=== PATIENT | female | born 1985 | race American Indian/Alaskan Native ===

== ENCOUNTER 2017-08-08 07:04 | Emergency (ER) | payer OTHER ==
[2017-08-08 09:44] LABS: HCG Qualitative,Urine Positive (Negative)
[2017-08-08 09:50] LABS: Bilirubin,Urine NEG (Negative); Blood,Urine NEG (Negative); Color,Urine Yellow (Yellow); Mucus,Urine FEW /HPF; Nitrite,Urine NEG (Negative); Protein,Urine <15 mg/dL mg/dL (Negative)
[2017-08-08] MEDS ORDERED: TYLENOL PO ONE (10:10)
--- NOTE | 2017-08-08 10:49 | Emergency Department Report ---
ED Back Pain/Injury HPI - General Chief Complaint: Back Pain/Injury Stated Complaint: BACK PAIN Time Seen by Provider: 08/08/17 10:05 Source: patient Limitations: No Limitations - History of Present Illness Initial Comments: This is a 31-year-old female nontoxic, well nourished in appearance, no acute signs of distress presents to the ED with c/o of acute on chronic back pain that radiates towards right lower extremity x1 month. Patient she usually takes Percocet and naproxen for pain reliever but sthe patient is out of her medication. Patient also stated to have slight abdominal cramping intermittently 1 month. Patient denies any vaginal bleeding, chest pain, shortness of breath, fever, chills, nausea, vomiting, headache or stiff neck. Patient denies any cough. Patient denies any dysuria, polyuria, or hematuira. Patient states past medical history of chronic back pain. Denies any allergies. MD Complaint: back pain -: month(s) (1) Similar Symptoms Previously: Yes Radiation: right leg Severity: mild Severity scale (0 -10): 8 Quality: aching Consistency: intermittent Improves With: immobilization, supine, sitting upright Worsens With: movement, walking Associated Symptoms: denies other symptoms. denies: confusion, weakness, chest pain, numbness, difficulty walking, cough, difficulty urinating, diaphoresis, incontinence, fever/chills, constipation, headaches, abdominal pain, loss of appetite, malaise, nausea/vomiting, rash, seizure, shortness of breath, syncope - Related Data Previous Rx's Medication Instructions Recorded Last Taken Type Acetaminophen [Acetaminophen 8 650 mg PO Q8H PRN #30 tablet.er 08/08/17 Unknown Rx Hour] Nitrofurantoin Monohyd/M-Cryst 100 mg PO Q12H #14 capsule 08/08/17 Unknown Rx [Macrobid 100 mg Capsule] Allergies Allergy/AdvReac Type Severity Reaction Status Date / Time No Known Allergies Allergy Unverified 08/08/17 07:33 ED Review of Systems ROS: Stated complaint: BACK PAIN Other details as noted in HPI Constitutional: denies: chills, fever Eyes: denies: eye pain, eye discharge, vision change ENT: denies: ear pain, throat pain Respiratory: denies: cough, shortness of breath, wheezing Cardiovascular: denies: chest pain, palpitations Endocrine: no symptoms reported Gastrointestinal: denies: abdominal pain, nausea, diarrhea Genitourinary: denies: urgency, dysuria, discharge Musculoskeletal: back pain. denies: joint swelling, arthralgia Skin: denies: rash, lesions Neurological: denies: headache, weakness, paresthesias Psychiatric: denies: anxiety, depression Hematological/Lymphatic: denies: easy bleeding, easy bruising ED Past Medical Hx - Past Medical History Previous Medical History?: Yes Additional medical history: back paiin - Surgical History Past Surgical History?: Yes Additional Surgical History: Abd hernia repair - Social History Smoking Status: Current Every Day Smoker Substance Use Type: Alcohol, Non Opiate Pain, Prescribed - Medications Home Medications: Home Medications Medication Instructions Recorded Confirmed Last Taken Type Acetaminophen [Acetaminophen 8 650 mg PO Q8H PRN #30 tablet.er 08/08/17 Unknown Rx Hour] Nitrofurantoin Monohyd/M-Cryst 100 mg PO Q12H #14 capsule 08/08/17 Unknown Rx [Macrobid 100 mg Capsule] ED Physical Exam - General Limitations: No Limitations General appearance: alert, in no apparent distress - Head Head exam: Present: atraumatic, normocephalic - Eye Eye exam: Present: normal appearance, PERRL, EOMI Pupils: Present: normal accommodation - ENT ENT exam: Present: normal exam, normal orophraynx, mucous membranes moist, TM's normal bilaterally, normal external ear exam - Neck Neck exam: Present: normal inspection, full ROM. Absent: tenderness, meningismus, lymphadenopathy, thyromegaly - Respiratory Respiratory exam: Present: normal lung sounds bilaterally. Absent: respiratory distress, wheezes, rales, rhonchi, stridor, chest wall tenderness, accessory muscle use, decreased breath sounds, prolonged expiratory - Cardiovascular Cardiovascular Exam: Present: regular rate, normal rhythm, normal heart sounds. Absent: bradycardia, tachycardia, irregular rhythm, systolic murmur, diastolic murmur, rubs, gallop - GI/Abdominal GI/Abdominal exam: Present: soft, normal bowel sounds. Absent: distended, tenderness, guarding, rebound, rigid, diminished bowel sounds - Rectal Rectal exam: Present: deferred - Extremities Exam Extremities exam: Present: normal inspection, full ROM, normal capillary refill. Absent: tenderness, pedal edema, joint swelling, calf tenderness - Back Exam Back exam: Present: normal inspection, full ROM, paraspinal tenderness (lumbar region bilateral). Absent: tenderness, CVA tenderness (R), CVA tenderness (L), muscle spasm, vertebral tenderness, rash noted - Expanded Back Exam Expanded Back exam: Absent: saddle anesthesia Back exam: Negative Straight Leg Raising: Left, Right - Neurological Exam Neurological exam: Present: alert, oriented X3, CN II-XII intact, normal gait, reflexes normal - Psychiatric Psychiatric exam: Present: normal affect, normal mood - Skin Skin exam: Present: warm, dry, intact, normal color. Absent: rash ED Course Vital Signs 08/08/17 08/08/17 07:33 11:44 Temperature 98.2 F 98.8 F Pulse Rate 87 85 Respiratory 20 18 Rate Blood Pressure 120/70 127/85 O2 Sat by Pulse 100 100 Oximetry - Reevaluation(s) Reevaluation #1: 08/08/17 10:44 Patient is speaking in full sentences with no signs of distress noted. ED Medical Decision Making - Medical Decision Making This is a 31-year-old female that presents with chronic low back pain. Patient is stable and was examined by me. Labs within normal limits. UA indicates positive for UTI. Patient is upon UA. Negative CVA tenderness. Patient stated she was not aware of this. Quantitative serum has been obtained. Ultrasound OB and transvaginal obtained and dictated by radiologist within normal limits. Patient was notified of ultrasound report with no questionable by the patient. Patient was instructed to return in 2 days for a repeat Derek. Patient received Tylenol in the ED which patent symptoms is improving subsided. She is discharged with Tylenol. Patient was instructed to Follow-up with a primary care doctor/[facility]PA[facility] in 3-5 days or if symptoms worsen and continue return to emergency room as soon as possible. At time of discharge, the patient does not seem toxic or ill in appearance. No acute signs of distress noted. Patient agrees to discharge treatment plan of care. No further questions noted by the patient. Critical care attestation.: If time is entered above; I have spent that time in minutes in the direct care of this critically ill patient, excluding procedure time. ED Disposition Clinical Impression: Qualifiers: Weeks of gestation: unspecified Qualified Code(s): Z34.90 - Encounter for supervision of normal , unspecified, unspecified trimester Chronic low back pain Qualifiers: Back pain laterality: right Sciatica presence: with sciatica Sciatica laterality: sciatica of right side Qualified Code(s): M54.41 - Lumbago with sciatica, right side UTI (urinary tract infection) Qualifiers: Urinary tract infection type: site unspecified Hematuria presence: without hematuria Qualified Code(s): N39.0 - Urinary tract infection, site not specified Disposition: DC-01 TO HOME OR SELFCARE Is pt being admited?: No Does the pt Need Aspirin: No Condition: Stable Instructions: Acetaminophen (By mouth), (ED), Chronic Back Pain (ED) Additional Instructions: Follow-up with a primary care doctor/[facility] TRA[employer] REPAIRER in 3-5 days or if symptoms worsen and continue return to emergency room as soon as possible. Return to the emergency room in 2 days for repeat quantitative test. Prescriptions: Acetaminophen [Acetaminophen 8 Hour] 650 mg PO Q8H PRN #30 tablet.er PRN Reason: Pain Nitrofurantoin Monohyd/M-Cryst [Macrobid 100 mg Capsule] 100 mg PO Q12H #14 capsule Referrals: PRIMARY CAREMD [Primary Care Provider] - 3-5 Days MARIANNA ZAMBRANO MD [Staff Physician] - 3-5 Days CRISTY VACA MD [Staff Physician] - 3-5 Days [facility] [Provider Group] - 3-5 Days [facility] [Outside] - 3-5 Days [facility] [Outside] - 3-5 Days Forms: Work/School Release Form(ED)
[2017-08-08 11:49] VITALS: BP 127/85
--- NOTE | 2017-08-08 12:12 | Ultrasound Report ---
ULTRASOUND OB ULTRASOUND OB TRANSVAGINAL HISTORY: Abdominal pain. COMPARISON: None. TECHNIQUE: Transabdominal and transvaginal ultrasound with color doppler interrogation. FINDINGS: The uterus and ovaries are within normal limits. The endometrium measures 10 mm. No intrauterine is visualized. No pelvic fluid or mass is identified. Normal color doppler interrogation. IMPRESSION: Unremarkable transabdominal and transvaginal pelvic ultrasounds.
== END 2017-08-08 12:24 | disposition home or self-care (01) ==
LOC: ED 07:04
DX: O23.31 Infections of other parts of urinary tract in pregnancy, first trimester (principal); Z3A.00 Weeks of gestation of pregnancy not specified; O26.891 Other specified pregnancy related conditions, first trimester; M54.41 Lumbago with sciatica, right side; F17.200 Nicotine dependence, unspecified, uncomplicated
CPT/HCPCS: 36415; 76801; 76817; 81001; 81025; 84702; 86850; 86900; 86901

== ENCOUNTER 2017-09-12 11:29 | Emergency (ER) | payer OTHER ==
[2017-09-12 12:44] LABS: Bilirubin,Urine NEG (Negative); Blood,Urine MOD (Negative); Color,Urine Yellow (Yellow); Mucus,Urine 2+ /HPF; Protein,Urine <15 mg/dL mg/dL (Negative)
[2017-09-12 12:49] LABS: Basophils # (Auto) 0.1 K/mm3 (0.0-0.1); Basophils % (Auto) 0.6 % (0.0-1.8); Eosinophils # (Auto) 0.1 K/mm3 (0.0-0.4); Eosinophils % (Auto) 0.7 % (0.0-4.3); Hematocrit 26.5 % (30.3-42.9); Hemoglobin 9.6 gm/dl (10.1-14.3); Lymphocytes # (Auto) 2.3 K/mm3 (1.2-5.4); Lymphocytes % (Auto) 22.2 % (13.4-35.0); Mean Corpuscular HGB Conc 36 % (30-34); Mean Corpuscular Hemoglobin 32 pg (28-32); Mean Corpuscular Volume 89 fl (79-97); Monocytes # (Auto) 0.6 K/mm3 (0.0-0.8); Monocytes % (Auto) 5.8 % (0.0-7.3); Platelet Count 234 K/mm3 (140-440); Red Blood Count 2.99 M/mm3 (3.65-5.03); Red Cell Distribution Width 13.2 % (13.2-15.2)
[2017-09-12 15:19] VITALS: BP 115/76
--- NOTE | 2017-09-12 16:18 | Emergency Department Report ---
HPI - General Chief Complaint: Vaginal Bleeding Time Seen by Provider: 09/12/17 15:47 - HPI HPI: Room 25 The patient is a 31-year-old female presenting with a chief complaint of vaginal bleeding. The patient is and states 2 days ago began passing clots vaginally. Patient denies passing tissue. Patient denies any history of fever Location: Vagina Duration: 2 days Quality: Blood clots Severity: Moderate Modifying factors: [see above] Context: [see above] Mode of transportation: [not driving] ED Past Medical Hx - Past Medical History Hx Hypertension: Yes (borderline. No meds) Additional medical history: back paIN, BORDERLINE HTN - Surgical History Additional Surgical History: Abd hernia repair - Family History Family history: no significant - Social History Smoking Status: Current Every Day Smoker Substance Use Type: None (denies illicit drug use) - Medications Home Medications: Home Medications Medication Instructions Recorded Confirmed Last Taken Type Acetaminophen [Acetaminophen 8 650 mg PO Q8H PRN #30 tablet.er 08/08/17 Unknown Rx Hour] Nitrofurantoin Monohyd/M-Cryst 100 mg PO Q12H #14 capsule 08/08/17 Unknown Rx [Macrobid 100 mg Capsule] HYDROcodone/APAP 5-325 [[place] 1 - 2 each PO Q6HR PRN #10 tablet 09/12/17 Unknown Rx 5/325] Ibuprofen [Motrin 800 MG tab] 800 mg PO Q8HR PRN #20 tablet 09/12/17 Unknown Rx ED Review of Systems ROS: Stated complaint: VAGINAL BLEEDING Other details as noted in HPI Constitutional: denies: fever Genitourinary: abnormal menses Physical Exam - Physical Exam Vital Signs: Vital Signs 09/12/17 09/12/17 12:02 15:17 Temperature 98.6 F 98.4 F Pulse Rate 86 81 Respiratory 17 18 Rate Blood Pressure 120/70 Blood Pressure 115/76 [Right] O2 Sat by Pulse 100 100 Oximetry Physical Exam: GENERAL: The patient is well-developed well-nourished female lying on stretcher not appearing to be in acute distress. [] HEENT: Normocephalic. Atraumatic. Extraocular motions are intact. Patient has moist mucous membranes. NECK: Supple. Trachea midline CHEST/LUNGS: Clear to auscultation. There is no respiratory distress noted. HEART/CARDIOVASCULAR: Regular. There is no tachycardia. There is no gallop rub or murmur. ABDOMEN: Abdomen is soft, nontender. Patient has normal bowel sounds. There is no abdominal distention. SKIN: There is no rash. There is no edema. There is no diaphoresis. NEURO: The patient is awake, alert, and oriented. The patient is cooperative. The patient has normal speech MUSCULOSKELETAL: There is no evidence of acute injury. PELVIC: Small amount of dark blood in the vault ED Course Vital Signs 09/12/17 09/12/17 12:02 15:17 Temperature 98.6 F 98.4 F Pulse Rate 86 81 Respiratory 17 18 Rate Blood Pressure 120/70 Blood Pressure 115/76 [Right] O2 Sat by Pulse 100 100 Oximetry - Consultations Consultation #1: 09/12/17 18:58 CRYSTAL CAL[employer]RATOR paged 09/12/17 19:[address] Clemons. Recommends administering one dose of IM Methergine and have patient keep appointment scheduled for 09/18/2017 ED Medical Decision Making - Lab Data Result diagrams: 09/12/17 12:31 Laboratory Tests 09/12/17 09/12/17 09/12/17 12:20 12:31 12:31 WBC 10.4 RBC 2.99 L Hgb 9.6 L Hct 26.5 L MCV 89 MCH 32 MCHC 36 H RDW 13.2 Plt Count 234 Lymph % (Auto) 22.2 Chambers % (Auto) 5.8 Eos % (Auto) 0.7 Baso % (Auto) 0.6 Lymph # 2.3 Chambers # 0.6 Eos # 0.1 Baso # 0.1 Seg Neutrophils % 70.7 H Seg Neutrophils # 7.4 HCG, Qual HCG, Quant [id number] H Urine Color Yellow Urine Turbidity Clear Urine pH 6.0 Ur Specific [place] 1.023 Urine Protein <15 mg/dl Urine Glucose (UA) Neg Urine Ketones Tr Urine Blood Mod Urine Nitrite Neg Urine Bilirubin Neg Urine Urobilinogen 2.0 Ur Leukocyte Esterase Neg Urine WBC (Auto) 2.0 Urine RBC (Auto) 1.0 U Epithel Cells (Auto) 2.0 Urine Mucus 2+ Blood Type Antibody Screen 09/12/17 09/12/17 12:31 12:31 WBC RBC Hgb Hct MCV MCH MCHC RDW Plt Count Lymph % (Auto) Chambers % (Auto) Eos % (Auto) Baso % (Auto) Lymph # Chambers # Eos # Baso # Seg Neutrophils % Seg Neutrophils # HCG, Qual Positive HCG, Quant Urine Color Urine Turbidity Urine pH Ur Specific [place] Urine Protein Urine Glucose (UA) Urine Ketones Urine Blood Urine Nitrite Urine Bilirubin Urine Urobilinogen Ur Leukocyte Esterase Urine WBC (Auto) Urine RBC (Auto) U Epithel Cells (Auto) Urine Mucus Blood Type AB POSITIVE Antibody Screen Negative - Radiology Data Radiology results: report reviewed (pelvic ultrasound), image reviewed (pelvic ultrasound) [facility] [address] [place] [address] Ultrasound Report Signed Patient: TORIE CORDOVA MR#: [id number] : 1985 Acct:[id number] Age/Sex: 31 / F ADM Date: 09/12/17 Loc: ED Attending Dr: Ordering Physician: LULA ROGERS MD Date of Service: 09/12/17 Procedure(s): US OB transvaginal Accession Number(s): [id number] cc: LULA ROGERS MD FINAL REPORT EXAM: US OB TRANSVAGINAL HISTORY: with vaginal bleeding . LMP 07/13/2017 with estimated age 8 weeks 5 days and EDC 04/19/2018. Quantitative beta HCG level 24,667 corresponding to 7-12 weeks gestation TECHNIQUE: Ultrasound of the pelvis using transabdominal and transvaginal imaging PRIORS: None. FINDINGS: Uterus: Uterus is enlarged in size and normal and homogeneous in echogenicity without focal fibroid formation. The uterus measures 11.5 x 5.5 x 6.5 cm in size. No definite intrauterine is identified. Endometrial stripe: Endometrial stripe is abnormally thickened and heterogeneous in echogenicity measuring 31.6 mm. No significant blood flow is noted within the endometrial thickness. Ovaries: Both ovaries appear normal in size and echogenicity with normal blood flow bilaterally. The right ovary measures 4.1 x 2.0 x 2.1 cm and the left ovary measures 3.6 x 1.8 x 3.4 cm in size. In the left ovary, there is a complex avascular hemorrhagic debris-filled cyst measuring 2.1 cm. Other: There is no evidence for solid adnexal mass is seen. There is no free fluid in the cul-de-sac. IMPRESSION: 1. No evidence for intrauterine gestation identified. No definite evidence for extra uterine . 2. the endometrium is abnormally thickened and heterogeneous in appearance. 3. Correlation with serial beta quantitative HCG levels is recommended. Transcribed By: [facility] Dictated By: GARDENIA SEN MD Electronically Authenticated By: GARDENIA SEN MD Signed Date/Time: 09/12/171815 DD/ 15 TD/TT: 09/12/171815 - Differential Diagnosis threatened , spontaneous , missed Critical care attestation.: If time is entered above; I have spent that time in minutes in the direct care of this critically ill patient, excluding procedure time. ED Disposition Clinical Impression: Spontaneous Disposition: - TO HOME OR SELFCARE Is pt being admited?: No Does the pt Need Aspirin: No Condition: Stable Instructions: Spontaneous Miscarriage (ED) Additional Instructions: Return to the emergency department immediately should you develop worsening symptoms, fever, inability to tolerate food or liquid or any other concerns. Prescriptions: HYDROcodone/APAP 5-325 [[place] 5/325] 1 - 2 each PO Q6HR PRN #10 tablet PRN Reason: Pain Ibuprofen [Motrin 800 MG tab] 800 mg PO Q8HR PRN #20 tablet PRN Reason: Pain Referrals: PRIMARY CARE, [Primary Care Provider] - 3-5 Days TK FELIPE MD [Staff Physician] - 09/18/17 () Time of Disposition: 19:21
--- NOTE | 2017-09-12 18:19 | Ultrasound Report ---
FINAL REPORT EXAM: US OB < = 14 WEEKS FETUS HISTORY: with vaginal bleeding . LMP 07/13/2017 with estimated age 8 weeks 5 days and EDC 04/19/2018. Quantitative beta HCG level 24,667 corresponding to 7-12 weeks gestation TECHNIQUE: Ultrasound of the pelvis using transabdominal and transvaginal imaging PRIORS: None. FINDINGS: Uterus: Uterus is enlarged in size and normal and homogeneous in echogenicity without focal fibroid formation. The uterus measures 11.5 x 5.5 x 6.5 cm in size. No definite intrauterine is identified. Endometrial stripe: Endometrial stripe is abnormally thickened and heterogeneous in echogenicity measuring 31.6 mm. No significant blood flow is noted within the endometrial thickness. Ovaries: Both ovaries appear normal in size and echogenicity with normal blood flow bilaterally. The right ovary measures 4.1 x 2.0 x 2.1 cm and the left ovary measures 3.6 x 1.8 x 3.4 cm in size. In the left ovary, there is a complex avascular hemorrhagic debris-filled cyst measuring 2.1 cm. Other: There is no evidence for solid adnexal mass is seen. There is no free fluid in the cul-de-sac. IMPRESSION: 1. No evidence for intrauterine gestation identified. No definite evidence for extra uterine . 2. the endometrium is abnormally thickened and heterogeneous in appearance. 3. Correlation with serial beta quantitative HCG levels is recommended.
[2017-09-12] MEDS ORDERED: METHERGINE IM ONE (19:19)
[2017-09-12] MEDS ORDERED: NORCO 5/325 ONE (19:37)
[2017-09-12] MEDS ORDERED: NORCO 5/325 PO ONE (19:42)
== END 2017-09-12 20:16 | disposition home or self-care (01) ==
LOC: ED 11:29
DX: O03.9 Complete or unspecified spontaneous abortion without complication (principal); O99.331 Smoking (tobacco) complicating pregnancy, first trimester; F17.200 Nicotine dependence, unspecified, uncomplicated; Z3A.08 8 weeks gestation of pregnancy
CPT/HCPCS: 36415; 76801; 76817; 81001; 84702; 84703; 85025; 86850; 86900; 86901; 96372; 99284; J2210

== ENCOUNTER 2018-02-07 13:33 | Emergency (ER) | payer OTHER ==
[2018-02-07 13:42] VITALS: BP 120/55
--- NOTE | 2018-02-07 16:50 | Ultrasound Report ---
FINAL REPORT EXAM: US OB TRANSVAGINAL HISTORY: fall (staus of baby) TECHNIQUE: Ultrasound pelvis transvaginal obstetrical PRIORS: None. FINDINGS: There is gestational sac present within the uterus. pole identified with crown-rump length 2.0 centimeters corresponding to estimated gestational age 8 weeks 4 days with estimated date of delivery September 15, 2018. Yolk sac is identified There is cardiac activity with heart rate 166 beats per minute. No free fluid seen within the cul-de-sac The right ovary is 7.8 x 3.5 x 5.6 centimeters. There are 2 cysts within the right ovary measuring 3.8 and 3.4 centimeters Left ovary 3.4 x 1.8 x 3.6 centimeters. No mass or cyst identified. IMPRESSION: Single live intrauterine gestation estimated at 8 weeks 4 days Right ovarian cysts noted
--- NOTE | 2018-02-07 16:52 | Ultrasound Report ---
FINAL REPORT EXAM: US OB < = 14 WEEKS FETUS HISTORY: fall TECHNIQUE: Ultrasound pelvis obstetrical transabdominal PRIORS: None. FINDINGS: There is gestational sac present within the uterus. pole identified with crown-rump length 2.0 centimeters corresponding to estimated gestational age 8 weeks 4 days with estimated date of delivery September 15, 2018. Yolk sac is identified There is cardiac activity with heart rate 166 beats per minute. No free fluid seen within the cul-de-sac The right ovary is 7.8 x 3.5 x 5.6 centimeters. There are 2 cysts within the right ovary measuring 3.8 and 3.4 centimeters Left ovary 3.4 x 1.8 x 3.6 centimeters. No mass or cyst identified. IMPRESSION: Single live intrauterine gestation estimated at 8 weeks 4 days Right ovarian cysts noted
[2018-02-07] MEDS ORDERED: TYLENOL PO ONE (20:30)
--- NOTE | 2018-02-07 20:34 | Emergency Department Report ---
ED Fall HPI - General Chief Complaint: Fall Stated Complaint: FALLEN/BACK PAIN Time Seen by Provider: 02/07/18 20:30 Source: patient Mode of arrival: Ambulatory - History of Present Illness Initial Comments: 32-year-old Finnish female that is 8 weeks presents to the emergency room with complaint of back pain status post falling down the steps yesterday night approximately 1900. Patient reports that she slipped down the steps and hit her lower back. Patient denies any vaginal bleeding or vaginal discharge no abdominal pain. Patient is 4 para 2 with a history of miscarriage. Patient is just concerned that the baby is okay. Complaint: fall -: days(s) (1) - Related Data Previous Rx's Medication Instructions Recorded Last Taken Type Acetaminophen [Acetaminophen 8 650 mg PO Q8H PRN #30 tablet.er 08/08/17 Unknown Rx Hour] Nitrofurantoin Monohyd/M-Cryst 100 mg PO Q12H #14 capsule 08/08/17 Unknown Rx [Macrobid 100 mg Capsule] HYDROcodone/APAP 5-325 [[place] 1 - 2 each PO Q6HR PRN #10 tablet 09/12/17 Unknown Rx 5/325] Ibuprofen [Motrin 800 MG tab] 800 mg PO Q8HR PRN #20 tablet 09/12/17 Unknown Rx Allergies Allergy/AdvReac Type Severity Reaction Status Date / Time No Known Allergies Allergy Verified 02/07/18 13:37 ED Review of Systems ROS: Stated complaint: FALLEN/BACK PAIN Other details as noted in HPI Comment: All other systems reviewed and negative Musculoskeletal: back pain (stiffness and soreness) ED Past Medical Hx - Past Medical History Previous Medical History?: Yes Hx Hypertension: Yes (borderline. No meds) Additional medical history: back paIN, BORDERLINE HTN - Surgical History Past Surgical History?: Yes Additional Surgical History: Abd hernia repair - Social History Smoking Status: Never Smoker Substance Use Type: None - Medications Home Medications: Home Medications Medication Instructions Recorded Confirmed Last Taken Type Acetaminophen [Acetaminophen 8 650 mg PO Q8H PRN #30 tablet.er 08/08/17 Unknown Rx Hour] Nitrofurantoin Monohyd/M-Cryst 100 mg PO Q12H #14 capsule 08/08/17 Unknown Rx [Macrobid 100 mg Capsule] HYDROcodone/APAP 5-325 [[place] 1 - 2 each PO Q6HR PRN #10 tablet 09/12/17 Unknown Rx 5/325] Ibuprofen [Motrin 800 MG tab] 800 mg PO Q8HR PRN #20 tablet 09/12/17 Unknown Rx ED Physical Exam - General Limitations: No Limitations General appearance: alert - Head Head exam: Present: atraumatic - Eye Eye exam: Present: normal appearance - ENT ENT exam: Present: mucous membranes moist - Neck Neck exam: Present: normal inspection - Cardiovascular Cardiovascular Exam: Present: regular rate, normal rhythm. Absent: systolic murmur, diastolic murmur, rubs, gallop - GI/Abdominal GI/Abdominal exam: Present: soft, normal bowel sounds. Absent: distended, tenderness - Extremities Exam Extremities exam: Present: normal inspection - Back Exam Back exam: Present: full ROM. Absent: tenderness - Neurological Exam Neurological exam: Present: alert, oriented X3 - Psychiatric Psychiatric exam: Present: normal affect, normal mood - Skin Skin exam: Present: warm, dry, intact, normal color. Absent: rash ED Course Vital Signs 02/07/18 13:37 Temperature 98.4 F Pulse Rate 54 L Respiratory 16 Rate Blood Pressure 120/55 O2 Sat by Pulse 96 Oximetry ED Medical Decision Making - Radiology Data Radiology results: report reviewed, image reviewed FINAL REPORT EXAM: US OB TRANSVAGINAL HISTORY: fall (staus of baby) TECHNIQUE: Ultrasound pelvis transvaginal obstetrical PRIORS: None. FINDINGS: There is gestational sac present within the uterus. pole identified with crown-rump length 2.0 centimeters corresponding to estimated gestational age 8 weeks 4 days with estimated date of delivery September 15, 2018. Yolk sac is identified There is cardiac activity with heart rate 166 beats per minute. No free fluid seen within the cul-de-sac The right ovary is 7.8 x 3.5 x 5.6 centimeters. There are 2 cysts within the right ovary measuring 3.8 and 3.4 centimeters Left ovary 3.4 x 1.8 x 3.6 centimeters. No mass or cyst identified. IMPRESSION: Single live intrauterine gestation estimated at 8 weeks 4 days Right ovarian cysts noted Transcribed By: DOMINIC Dictated By: GUS DUBON MD Electronically Authenticated By: GUS DUBON MD Signed Date/Time: 02/07/181650 DD/ 50 TD/TT: 08/22/18 1651 - Medical Decision Making Patient has been evaluated by this provider fast track. Acetaminophen 650 mg given for back pain. Transvaginal and pelvic ultrasound performed shows that there is IUP is approximately 8 weeks and 4 days. 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 Patient verbalizes understanding. Critical care attestation.: If time is entered above; I have spent that time in minutes in the direct care of this critically ill patient, excluding procedure time. ED Disposition Clinical Impression: Fall (on) (from) other stairs and steps, initial encounter Lower back pain Qualifiers: Chronicity: acute Back pain laterality: unspecified Sciatica presence: without sciatica Qualified Code(s): M54.5 - Low back pain Qualifiers: Weeks of gestation: 8 weeks Qualified Code(s): Z3A.08 - 8 weeks gestation of Disposition: DC-01 TO HOME OR SELFCARE Is pt being admited?: No Does the pt Need Aspirin: No Condition: Stable Instructions: Fall Prevention (ED), Back Pain (ED) Additional Instructions: Please take Tylenol/acetaminophen for pain management. Please contact your OB provider to inform them that you're in the emergency room. Referrals: PRIMARY CARE, [Primary Care Provider] - 3-5 Days [facility] [Provider Group] - 3-5 Days Forms: Work/School Release Form(ED)
== END 2018-02-07 20:47 | disposition home or self-care (01) ==
LOC: ED 13:33
DX: O26.891 Other specified pregnancy related conditions, first trimester (principal); M54.5 Low back pain; Z3A.08 8 weeks gestation of pregnancy; W10.9XXA Fall (on) (from) unspecified stairs and steps, initial encounter; Y93.89 Activity, other specified; Y92.89 Other specified places as the place of occurrence of the external cause; Y99.8 Other external cause status
CPT/HCPCS: 36415; 76801; 76817; 84702

== ENCOUNTER 2018-02-27 05:55 | Emergency (ER) | payer OTHER ==
[2018-02-27 06:08] VITALS: BP 116/72
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
[2018-02-27] MEDS ORDERED: TYLENOL PO ONE ×2 (07:43)
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
== END 2018-02-27 10:14 | disposition home or self-care (01) ==
LOC: ED 05:55
DX: O9A.211 Injury, poisoning and certain other consequences of external causes complicating pregnancy, first trimester (principal); M54.5 Low back pain; M79.1 Myalgia; R10.9 Unspecified abdominal pain; I10 Essential (primary) hypertension; F17.200 Nicotine dependence, unspecified, uncomplicated; Z3A.11 11 weeks gestation of pregnancy
CPT/HCPCS: 76801

== ENCOUNTER 2018-07-08 05:14 | Outpatient (CLI) | payer OTHER ==
[2018-07-08] MEDS ORDERED: LACTATED RINGERS 1,000 ML IV ONE (05:48)
[2018-07-08 05:53] VITALS: BP 114/68
[2018-07-08 06:08] LABS: Bacteria,Urine 2+ /HPF (Negative); Bilirubin,Urine NEG (Negative); Blood,Urine NEG (Negative); Color,Urine Yellow (Yellow); Mucus,Urine FEW /HPF; Protein,Urine <15 mg/dL mg/dL (Negative); Urobilinogen,Urine < 2.0 mg/dL (<2.0)
[2018-07-08] MEDS ORDERED: TYLENOL PO NR (06:42)
[2018-07-08] MEDS ORDERED: BRETHINE SUB-Q SCH (07:00)
== END 2018-07-08 07:30 | disposition home or self-care (01) ==
LOC: TRG 05:14
PROVIDERS: ATTEND Obstetrics & Gynecology
DX: O47.03 False labor before 37 completed weeks of gestation, third trimester (principal); O10.013 Pre-existing essential hypertension complicating pregnancy, third trimester; Z3A.30 30 weeks gestation of pregnancy
CPT/HCPCS: 59025; 81001; 96360; J3105; J7120

== ENCOUNTER 2018-08-12 10:36 | Outpatient (CLI) | payer OTHER ==
[2018-08-12 10:51] VITALS: BP 121/74
[2018-08-12 13:01] LABS: Bilirubin,Urine NEG (Negative); Blood,Urine NEG (Negative); Color,Urine Yellow (Yellow); Mucus,Urine FEW /HPF; Protein,Urine <15 mg/dL mg/dL (Negative); Urobilinogen,Urine < 2.0 mg/dL (<2.0)
== END 2018-08-12 12:57 | disposition home or self-care (01) ==
LOC: TRG 10:36
PROVIDERS: ATTEND Obstetrics & Gynecology
DX: O47.03 False labor before 37 completed weeks of gestation, third trimester (principal); Z3A.35 35 weeks gestation of pregnancy; W19.XXXA Unspecified fall, initial encounter; Y93.89 Activity, other specified; Y92.89 Other specified places as the place of occurrence of the external cause; Y99.8 Other external cause status
CPT/HCPCS: 59025; 81001

== ENCOUNTER 2018-08-15 18:35 | Outpatient (CLI) | payer OTHER ==
[2018-08-15] MEDS ORDERED: LACTATED RINGERS 500 ML IV ONE (18:57)
[2018-08-15 19:26] LABS: Hematocrit 27.3 % (30.3-42.9); Mean Corpuscular HGB Conc 37 % (30-34); Mean Corpuscular Volume 87 fl (79-97); Platelet Count 327 K/mm3 (140-440); Red Blood Count 3.13 M/mm3 (3.65-5.03); Red Cell Distribution Width 16.1 % (13.2-15.2)
[2018-08-15 19:27] LABS: Bilirubin,Urine NEG (Negative); Blood,Urine NEG (Negative); Color,Urine Yellow (Yellow); Mucus,Urine FEW /HPF; Protein,Urine <15 mg/dL mg/dL (Negative); Urobilinogen,Urine < 2.0 mg/dL (<2.0)
[2018-08-15 19:57] VITALS: BP 126/71
[2018-08-15 20:00] LABS: Uric Acid 3.1 mg/dL (3.5-7.6)
[2018-08-15 20:03] LABS: Alanine Aminotransferase < 5 units/L (7-56)
[2018-08-15] MEDS ORDERED: TYLENOL PO ONE (20:05)
== END 2018-08-15 20:30 | disposition home or self-care (01) ==
LOC: TRG 18:35
PROVIDERS: ATTEND Obstetrics & Gynecology
DX: O47.03 False labor before 37 completed weeks of gestation, third trimester (principal); Z3A.35 35 weeks gestation of pregnancy
CPT/HCPCS: 36415; 81001; 82565; 83615; 84450; 84460; 84550; 85027; J7120

== ENCOUNTER 2018-09-11 20:46 | Inpatient (IN) | payer OTHER ==
[2018-09-11] MEDS ORDERED: CERVIDIL VG ONE (21:41)
[2018-09-11] MEDS ORDERED: MINERAL OIL PO PRN (21:41)
[2018-09-11] MEDS ORDERED: AMBIEN PO PRN (21:43)
[2018-09-11] MEDS ORDERED: PITOCin/NS 20 UNIT/1000ML DRIP 20 UNITS/1,000 ML BAG IV SCH (22:00)
[2018-09-11] MEDS ORDERED: LACTATED RINGERS 1,000 ML IV SCH (22:00)
[2018-09-11 22:18] LABS: Hemoglobin 9.6 gm/dl (10.1-14.3); Mean Corpuscular HGB Conc 36 % (30-34); Mean Corpuscular Volume 85 fl (79-97); Platelet Count 320 K/mm3 (140-440); Red Blood Count 3.19 M/mm3 (3.65-5.03); Red Cell Distribution Width 16.1 % (13.2-15.2)
[2018-09-12] MEDS ORDERED: BRETHINE SUB-Q PRN (01:41)
[2018-09-12] MEDS ORDERED: BRETHINE IVP PRN (01:41)
[2018-09-12] MEDS ORDERED: XYLOCAINE 2% INFILTRATI ONE (01:41)
[2018-09-12] MEDS ORDERED: LACTATED RINGERS 1,000 ML IV SCH (02:00)
[2018-09-12] MEDS ORDERED: PITOCin/NS 20 UNIT/1000ML DRIP 20 UNITS/1,000 ML BAG IV SCH (02:00)
--- NOTE | 2018-09-12 02:14 | History and Physical Report ---
History of Present Illness Date of examination: 09/12/18 (pt presents for IOL as per [facility] recommendation) Date of admission: 09/11/18 20:46 History of present illness: EDC Confirmation: 09/16/2018 Gestational Age: 6 1/7 weeks Past History : 4 Term Births: 2 Living Children: 2 Para: 2 Spont. Ab: 1 # 1 Delivery date: 2006 Weeks Gestation: 38 labor: no Delivery type: Anesthesia type: none [facility] Sex: Male weight: 5-9 # 2 Delivery date: 2009 Weeks Gestation: 38 Delivery type: Anesthesia type: none [facility] Infant Sex: Female weight: 5-13 # 3 Delivery date: 2018 Delivery type: SAB Past Medical History Social Hx: single no E/T/D-previously [facility] use prior to know [place] Active Medications (reviewed today): PLUS 27-1 MG ORAL TABLET ( VIT-FE FUMARATE-FA) 1 po CELEXA 20 MG ORAL TABLET (CITALOPRAM HYDROBROMIDE) 1 po qd DIFLUCAN 150 MG ORAL TABLET (FLUCONAZOLE) 1 tab po times one IBUPROFEN 800 MG ORAL TABLET (IBUPROFEN) 1 po q6 hr prn pain ZOLOFT 50 MG ORAL TABLET (SERTRALINE HCL) 1 po in the morning FERROUS SULFATE 325 (65 FE) MG ORAL TABLET (FERROUS SULFATE) 1 po qd ADVIL 200 MG ORAL TABLET (IBUPROFEN) Current Allergies (reviewed today): No known allergies Past History - Obstetrical History Expected Date of Delivery: 09/16/18 Actual Gestation: 39 Week(s) 3 Day(s) : 4 Para: 2 Hx # Term Pregnancies: 2 Number of Pregnancies: 0 Spontaneous Abortions: 1 Number of Living Children: 2 Medications and Allergies Allergies Allergy/AdvReac Type Severity Reaction Status Date / Time No Known Allergies Allergy Verified 02/07/18 13:37 Home Medications Medication Instructions Recorded Confirmed Last Taken Type Acetaminophen 500 mg PO Q8H PRN #12 tablet 02/27/18 06/21/18 06/20/18 22:00 Rx Active Meds: Active Medications Ephedrine Sulfate (Ephedrine Sulfate) 10 mg IV Q2M PRN PRN Reason: Hypotension Fentanyl (Sublimaze) 100 mcg IV Q2H PRN PRN Reason: Labor Pain Lactated Ringer's (Lactated Ringers) 1,000 mls @ 125 mls/hr IV DIRECT BENJAMIN Oxytocin/Sodium Chloride (Pitocin/Ns 20 Unit/1000ml Drip) 20 units in 1,000 mls @ 125 mls/hr IV DIRECT BENJAMIN Lactated Ringer's (Lactated Ringers) 1,000 mls @ 125 mls/hr IV DIRECT BENJAMIN Oxytocin/Sodium Chloride (Pitocin/Ns 20 Unit/1000ml Drip) 20 units in 1,000 mls @ 125 mls/hr IV DIRECT BENJAMIN Oxytocin/Sodium Chloride (Pitocin/Ns 30 Unit/500ml) 30 units in 500 mls @ 4 mls/hr IV Q30MIN BENJAMIN; Protocol Mineral Oil (Mineral Oil) 30 ml PO QHS PRN PRN Reason: Constipation Terbutaline Sulfate (Brethine) 0.25 mg SUB-Q ONCE PRN PRN Reason: Hyperstimulation/Hypertonicity Terbutaline Sulfate (Brethine) 0.25 mg IVP ONCE PRN PRN Reason: Hyperstimulation/Hypertonicity Zolpidem Tartrate (Ambien) 5 mg PO QHS PRN PRN Reason: Sleep Last Admin: 09/11/18 22:26 Dose: 5 mg Documented by: - Vital Signs Vital signs: Vital Signs Pulse Pulse Ox 101 H 99 09/11/18 21:21 09/11/18 21:21 Temp Pulse Resp BP Pulse Ox 94 H 124/70 98 09/11/18 22:25 09/11/18 21:22 09/11/18 22:25 - Physical Exam Breasts: Positive: deferred Cardiovascular: Regular rate, Normal S1, Normal S2 Lungs: Positive: Clear to auscultation Abdomen: Positive: normal appearance, soft, normal bowel sounds. Negative: distention, tenderness Genitourinary (Female): Positive: normal external genitalia Vulva: both: normal Vagina: Positive: normal moisture. Negative: discharge Cervix: Negative: lesion, discharge Uterus: Positive: normal size, normal contour Adnexa: both: normal Anus/Rectum: Positive: normal perianal skin, heme negative. Negative: rectal mass, hemorrhoids Extremities: Positive: normal Deep Tendon Reflex Grade: Normal +2 - Obstetrical FHR: category 1 Uterine Contraction Monitor Mode: External Cervical Dilatation: 1 (per RN when Cervidil placed) Cervical Effacement Percentage: 50 station: -2 Uterine Contraction Pattern: Irregular Uterine Tone Measurement Phase: Resting Uterine Contraction Intensity: Mild Results Result Diagrams: 09/11/18 21:41 Abnormal lab results 09/11/18 Range/Units 21:41 RBC 3.19 L (3.65-5.03) M/mm3 Hgb 9.6 L (10.1-14.3) gm/dl Hct 27.0 L (30.3-42.9) % MCHC 36 H (30-34) % RDW 16.1 H (13.2-15.2) % All other labs normal. GBS Negative HBsAg Screen Negative Negative *1 RPR Non Reactive Non Reactive *2 Rubella Antibodies, IgG 1.94 index Immune >0.99 *3 Non-immune <0.90 Equivocal 0.90 - 0.99 Immune >0.99 ABO Grouping AB *4 Rh Factor Positive *5 Please note: Prior records for this patient's ABO / Rh type are not available for additional verification. Antibody Screen Negative Negative *6 WBC 5.8 x10E3/uL 3.4-10.8 *7 RBC 3.91 x10E6/uL 3.77-5.28 *8 Hemoglobin [L] 9.7 g/dL 11.1-15.9 *9 Hematocrit [L] 30.7 % 34.0-46.6 *10 MCV 79 fL 79-97 *11 MCH [L] 24.8 pg 26.6-33.0 *12 MCHC 31.6 g/dL 31.5-35.7 *13 RDW [H] 21.3 % 12.3-15.4 *14 Platelets 347 x10E3/uL 150-379 *15 Neutrophils 67 % Not Estab. *16 Lymphs 25 % Not Estab. *17 Monocytes 7 % Not Estab. *18 Eos 1 % Not Estab. *19 Basos 0 % Not Estab. *20 ! Immature Cells <No Reported Value> *21 Neutrophils (Absolute) 3.9 x10E3/uL 1.4-7.0 *22 Lymphs (Absolute) 1.5 x10E3/uL 0.7-3.1 *23 Monocytes(Absolute) 0.4 x10E3/uL 0.1-0.9 *24 Eos (Absolute) 0.0 x10E3/uL 0.0-0.4 *25 Baso (Absolute) 0.0 x10E3/uL 0.0-0.2 *26 ! Immature Granulocytes 0 % Not Estab. *27 ! Immature Grans (Abs) 0.0 x10E3/uL 0.0-0.1 *28 ! NRBC <No Reported Value> *29 Hematology Comments: <No Reported Value> *30 Tests: (2) NuSwab VG+, HSV (510648) ! Atopobium vaginae [A] High - 2 Score *31 ! BVAB 2 [A] High - 2 Score *32 ! Megasphaera 1 [A] High - 2 Score *33 Calculate total score by adding the 3 individual bacterial vaginosis (BV) marker scores together. Total score is interpreted as follows: Total score 0-1: Indicates the absence of BV. Total score 2: Indeterminate for BV. Additional clinical data should be evaluated to establish a diagnosis. Total score 3-6: Indicates the presence of BV. This test was developed and its performance characteristics determined by [employer] [facility]. It has not been cleared or approved by the Food and Drug Administration. The FDA has determined that such clearance or approval is not necessary. ! Silvia albicans, SHIRA Negative Negative *34 ! Silvia glabrata, SHIRA Negative Negative *35 This test was developed and its performance characteristics determined by [facility]. It has not been cleared or approved by the Food and Drug Administration. The FDA has determined that such clearance or approval is not necessary. ! Trich vag by SHIRA Negative Negative *36 ! Chlamydia trachomatis, SHIRA Negative Negative *37 ! Neisseria gonorrhoeae, SHIRA Negative Negative *38 ! HSV 1 SHIRA Negative Negative *39 ! HSV 2 SHIRA Negative Negative *40 Tests: (3) Panel 047880 ([id number]) HIV Screen 4th Generation wRfx Non Reactive Non Reactive *41 Tests: (4) HCV Ab w/Rflx to Verification (645051) ! HCV Ab <0.1 s/co ratio 0.0-0.9 *42 Tests: (5) Comment: ([id number]) ! Comment: SPRCS *43 Non reactive HCV antibody screen is consistent with no HCV infection, unless recent infection is suspected or other evidence exists to indicate HCV infection. Tests: (6) Urine Culture, Routine ([id number]) Urine Culture, Routine Final report *44 Tests: (7) Result ([id number]) ! Result 1 No growth *45 Assessment and Plan 32yo for [facility] Orders in E[facility]
[2018-09-12] MEDS ORDERED: PITOCin/NS 30 UNIT/500ML 30 UNITS/500 ML BAG IV SCH ×2 (05:00→09:00)
[2018-09-12] MEDS: SUBLIMAZE IV PRN ×2 (05:17→07:56)
--- NOTE | 2018-09-12 09:10 | Procedure Note ---
OB Delivery Note - Delivery Date of Delivery: 09/12/18 Husbandry Technician: MARLYN KEITH Estimated blood loss: 300cc - Vaginal Delivery presentation: vertex Delivery position: OA Intrapartum events: other(please specify) (poly) Delivery induction: cervidil Delivery augmentation: pitocin Delivery monitor: external uterine, internal FHT Route of delivery: Delivery placenta: spontaneous Delivery cord: 3 umbilical vessels Episiotomy: none Delivery laceration: none Anesthesia: intravenous Delivery comments: live born male over intact perineum Cord blood obtained Placenta and membrane delivered complete and intact. 3 vessel cord Pit IVFs 8/9, EBL 300, wgt 6-2 Mom and baby remain LDR stable. - A at 1 minute: 8 at 5 minutes: 9 Infant Gender: Male (wgt 6-2)
[2018-09-12] MEDS ORDERED: SODIUM CHLORIDE FLUSH SYRINGE 10 ML IV PRN (10:00)
[2018-09-12] MEDS ORDERED: BENADRYL PO PRN (10:00)
[2018-09-12] MEDS ORDERED: DULCOLAX PR PRN (10:00)
[2018-09-12] MEDS ORDERED: TYLENOL PO PRN (10:00)
[2018-09-12] MEDS ORDERED: LANSINOH TP PRN (10:00)
[2018-09-12] MEDS ORDERED: TUCKS PAD TP PRN (10:00)
[2018-09-12] MEDS ORDERED: PHENERGAN PR PRN (10:30)
[2018-09-12] MEDS ORDERED: ZOFRAN IV PRN (10:30)
[2018-09-12] MEDS ORDERED: PHENERGAN PO PRN (10:30)
[2018-09-12] MEDS: PERCOCET 5/325 PO PRN ×3 (11:41→22:25)
[2018-09-12] MEDS: IBUPROFEN PO SCH ×3 (11:42→22:16)
[2018-09-12 20:47] LABS: Hematocrit 28.8 % (30.3-42.9)
[2018-09-12] MEDS ORDERED: MILK OF MAGNESIA PO PRN (22:00)
[2018-09-13 02:29] VITALS: BP 129/80
[2018-09-13] MEDS ORDERED: BOOSTRIX IM ONE (06:00)
[2018-09-13] MEDS ORDERED: M-M-R II VACCINE SUB-Q ONE (11:00)
== END 2018-09-13 02:40 | disposition left against medical advice (07) | DRG 775 ==
LOC: LD 20:46 → OB 09-12 10:42
PROVIDERS: ADMIT Obstetrics & Gynecology; ATTEND Obstetrics & Gynecology
PROC: 3E0P7VZ Introduction of Hormone into Female Reproductive, Via Natural or Artificial Opening (ICD-10-PCS; 2018-09-11)
PROC: 10E0XZZ Delivery of Products of Conception, External Approach (ICD-10-PCS; principal; 2018-09-12)
PROC: 3E0234Z Introduction of Serum, Toxoid and Vaccine into Muscle, Percutaneous Approach (ICD-10-PCS; 2018-09-13)
DX: O80 Encounter for full-term uncomplicated delivery (principal); Z23 Encounter for immunization; Z3A.39 39 weeks gestation of pregnancy; Z37.0 Single live birth; Z53.21 Procedure and treatment not carried out due to patient leaving prior to being seen by health care provider
CPT/HCPCS: 36415; 59200; 85014; 85018; 85027; 86592; 86850; 86900; 86901; G0378; J2590; J3010; J7120

== ENCOUNTER 2018-09-13 04:05 | Inpatient (IN) | payer OTHER ==
[2018-09-13] MEDS ORDERED: PERCOCET 5/325 PO ONE (04:19)
--- NOTE | 2018-09-13 04:22 | Emergency Department Report ---
ED Medical Clearance HPI - General Chief complaint: Medical Clearance Stated complaint: MED CLEARANCE Time Seen by Provider: 09/13/18 04:15 Source: patient Mode of arrival: Ambulatory Limitations: No Limitations - History of Present Illness Initial comments: This is a 32-year-old female who recently had a spontaneous vaginal delivery at this hospital. As per review of records, she reportedly left AGAINST MEDICAL ADVICE earlier on this morning. The patient now presents back because she would like to be readmitted to mother baby. She has no complaints with the exception of chronic lower abdominal cramping discomfort, since she was . She denies headache, neck pain, chest pain, shortness of breath, urinary symptoms, homicidality, suicidality. She denies overdose. She is in no acute distress at this time, and she is speaking on a cellular phone. MD Complaint: other Traumatic Symptoms: denies traumatic injury Treatments Prior to Arrival: none Home medications: Previous Rx's Medication Instructions Recorded Last Taken Type Acetaminophen 500 mg PO Q8H PRN #12 tablet 02/27/18 06/20/18 22:00 Rx Allergies/Adverse reactions: Allergies Allergy/AdvReac Type Severity Reaction Status Date / Time No Known Allergies Allergy Verified 02/07/18 13:37 ED Review of Systems ROS: Stated complaint: MED CLEARANCE Other details as noted in HPI Constitutional: denies: fever Eyes: denies: vision change ENT: denies: epistaxis Respiratory: denies: cough Cardiovascular: denies: chest pain Gastrointestinal: abdominal pain Genitourinary: denies: dysuria Musculoskeletal: denies: back pain Skin: denies: lesions Neurological: denies: weakness Psychiatric: denies: homicidal thoughts, suicidal thoughts ED Past Medical Hx - Past Medical History Previous Medical History?: Yes Hx Hypertension: No Hx Diabetes: No Hx Deep Vein Thrombosis: No Hx Renal Disease: No Hx Sickle Cell Disease: No Hx Seizures: No Hx Asthma: No Hx HIV: No Additional medical history: back paIN, BORDERLINE HTN - Surgical History Past Surgical History?: Yes Additional Surgical History: Abd hernia repair - Social History Smoking Status: Never Smoker Substance Use Type: None - Medications Home Medications: Home Medications Medication Instructions Recorded Confirmed Last Taken Type Acetaminophen 500 mg PO Q8H PRN #12 tablet 02/27/18 06/21/18 06/20/18 22:00 Rx ED Physical Exam - General Limitations: No Limitations General appearance: alert, in no apparent distress - Head Head exam: Present: atraumatic, normocephalic - Eye Eye exam: Present: normal appearance, EOMI. Absent: nystagmus - ENT ENT exam: Present: normal exam, normal orophraynx, mucous membranes moist, normal external ear exam - Neck Neck exam: Present: normal inspection, full ROM. Absent: tenderness, meningismus - Respiratory Respiratory exam: Present: normal lung sounds bilaterally. Absent: respiratory distress - Cardiovascular Cardiovascular Exam: Present: regular rate, normal rhythm, normal heart sounds. Absent: bradycardia, tachycardia, irregular rhythm, systolic murmur, diastolic murmur, rubs, gallop - GI/Abdominal GI/Abdominal exam: Present: soft, tenderness, other (mild lower abdominal tenderness, appropriate for being . There is no rebound, guarding or peritoneal signs.). Absent: distended, guarding, pulsatile mass - Extremities Exam Extremities exam: Present: normal inspection, full ROM, other (2+ pulses noted in the bilateral upper, lower extremities. Compartments soft. No long bony tenderness. The pelvis is stable.). Absent: pedal edema, joint swelling, calf tenderness - Back Exam Back exam: Present: normal inspection, full ROM. Absent: tenderness, CVA tenderness (R), paraspinal tenderness, vertebral tenderness - Neurological Exam Neurological exam: Present: alert, oriented X3, CN II-XII intact, normal gait, other (Extraocular movements intact. Tongue midline. No facial droop. Facial sensation intact to light touch in the V1, V2, V3 distribution bilaterally. 5 and 5 strength in 4 extremities.. Sensation is intact to light touch in 4 extremities.). Absent: motor sensory deficit - Psychiatric Psychiatric exam: Present: normal affect, normal mood. Absent: homicidal ideation, suicidal ideation - Skin Skin exam: Present: warm, dry, intact, normal color. Absent: rash ED Course Vital Signs 09/13/18 04:10 Temperature 97.9 F Pulse Rate 99 H Respiratory 12 Rate Blood Pressure 129/85 O2 Sat by Pulse 99 Oximetry ED Medical Decision Making - Lab Data Vital Signs 09/13/18 04:10 Temperature 97.9 F Pulse Rate 99 H Respiratory 12 Rate Blood Pressure 129/85 O2 Sat by Pulse 99 Oximetry - Medical Decision Making Differential diagnosis, including not limited to: , medical clearance Assessment and plan: 32-year-old female who reportedly left a few hours ago AGAINST MEDICAL ADVICE, now back the patient is afebrile with reassuring vital signs, and has a benign physical examination. The patient is speaking on a cellular phone, and does not appear to be in any acute distress. The patient does not have an acute medical contraindication at this point time to readmission to labor and delivery. Paulina, the research methodologist, has accepted the patient on behalf of Dr. Lyons, Dr March ED Disposition Clinical Impression: exam Disposition: OP ADMIT IP TO THIS HOSP Is pt being admited?: Yes Condition: Good
[2018-09-13] MEDS ORDERED: LANSINOH TP PRN (06:30)
[2018-09-13] MEDS ORDERED: TUCKS PAD TP PRN (06:30)
--- NOTE | 2018-09-13 06:37 | History and Physical Report ---
History of Present Illness Date of examination: 09/13/18 (pt left AMA due to social situation) Date of admission: 09/13/18 04:22 History of present illness: Pt left in the night after her SO was arrested. She needed to get her car. Pt returned after approx 2 hours. Sent to ED for readmit. Pt had left her NB safely in the holding nursery Past History - Obstetrical History : 4 Medications and Allergies Allergies Allergy/AdvReac Type Severity Reaction Status Date / Time No Known Allergies Allergy Verified 02/07/18 13:37 Home Medications Medication Instructions Recorded Confirmed Last Taken Type Acetaminophen 500 mg PO Q8H PRN #12 tablet 02/27/18 06/21/18 06/20/18 22:00 Rx - Vital Signs Vital signs: Vital Signs Temp Pulse Resp BP Pulse Ox 97.9 F 99 H 12 129/85 99 09/13/18 04:10 09/13/18 04:10 09/13/18 04:10 09/13/18 04:10 09/13/18 04:10 Temp Pulse Resp BP Pulse Ox 97.9 F 99 H 12 129/85 99 09/13/18 04:10 09/13/18 04:10 09/13/18 04:10 09/13/18 04:10 09/13/18 04:10 - Physical Exam Breasts: Cardiovascular: Regular rate, Normal S1, Normal S2 Abdomen: Positive: normal appearance, soft, normal bowel sounds. Negative: distention, tenderness Vulva: both: normal Vagina: Positive: normal moisture. Negative: discharge Cervix: Negative: lesion, discharge Uterus: Positive: normal size, normal contour Adnexa: both: normal Anus/Rectum: Positive: normal perianal skin, heme negative. Negative: rectal mass, hemorrhoids Extremities: Deep Tendon Reflex Grade: Normal +2 Results All other labs normal. Assessment and Plan pt readmitted to M/B to complete her PP course. Will have CM speak with pt to assure needs are met and for home safety. consulted when I was notified that pt had left AMA.
--- NOTE | 2018-09-13 08:49 | Progress Note ---
Subjective - Subjective Date of service: 09/13/18 Objective - Vital Signs Vital Signs: Vital Signs - 12hr 09/13/18 04:10 Temperature 97.9 F Pulse Rate 99 H Respiratory 12 Rate Blood Pressure 129/85 O2 Sat by Pulse 99 Oximetry
[2018-09-13] MEDS ORDERED: DEPO-PROVERA (CONTRACEPTION) IM NR (09:30)
[2018-09-13] MEDS: IBUPROFEN PO SCH ×2 (09:42→20:38)
--- NOTE | 2018-09-13 13:32 | Discharge Summary ---
Providers - Providers Date of Admission: 09/13/18 06:30 Date of discharge: 09/13/18 (patient desires discharge today) Attending physician: KARON DE LA TORRE 09/13/18 Consult to Case Management [CONS] Routine Services Needed at Discharge: Services Engineer Notified:: case management Phone number called:: [phone] Was contact made?: Yes If yes, spoke with:: case management Primary care physician: DUYEN ZAMBRANO Hospitalization Reason for admission: IOL Condition: Good Pertinent studies: post delivery H&H 04/15.8 Procedures: Hospital course: uncomplicated delivery and course Disposition: DC-01 TO HOME OR SELFCARE Core Measure Documentation - Palliative Care Palliative Care/ Comfort Measures: Not Applicable - Core Measures Any of the following diagnoses?: none Exam - Constitutional Vitals: Temp Pulse Resp BP Pulse Ox 98.4 F 82 18 136/84 98 09/13/18 07:59 09/13/18 07:59 09/13/18 07:59 09/13/18 07:59 09/13/18 07:59 General appearance: Present: no acute distress, well-nourished - EENT Eyes: Present: PERRL ENT: hearing intact, clear oral mucosa - Neck Neck: Present: supple, normal ROM - Respiratory Respiratory effort: normal Respiratory: bilateral: CTA - Cardiovascular Rhythm: regular Heart Sounds: Present: S1 & S2. Absent: rub, click - Extremities Extremities: pulses symmetrical, No edema Peripheral Pulses: within normal limits - Abdominal General gastrointestinal: Present: soft, non-tender, non-distended, normal bowel sounds Female genitourinary: Present: normal - Integumentary Integumentary: Present: clear, warm, dry - Musculoskeletal Musculoskeletal: gait normal, strength equal bilaterally - Psychiatric Psychiatric: appropriate mood/affect, intact judgment & insight - Neurologic Neurologic: CNII-XII intact, moves all extremities - Additional findings Additional findings: Fundus firm, ML/U/1, vaginal bleeding is scant. Patient denies any complaints. Reports pain is controlled with PO medications. Reports breasts feel well. VSSAF. Desires discharge today. Patient informed that she is cleared for DC from OB standpoint. Will sign discharge order pending clearance from case management. RN aware pt may not dc home until CM consult complete and clearte. She reports she spoke with them and they reported they will see pt soon. Plan Activity: no restrictions Diet: regular Wound: open to air Follow up with: DUYEN ZAMBRANO MD [Primary Care Provider] - 10/11/18 () SHELLY LANDRUM MD [Staff Physician] - 10/11/18 (Congratulations! Please call [phone] to schedule your appointment in 4 weeks. Please schedule your son's circumcision appointment in our office in 1 week. Bring EMLA cream with you to his appointment and await further instructions for use. Call with any questions or concerns. )
[2018-09-13] MEDS: TYLENOL PO PRN (23:06)
[2018-09-14] MEDS: IBUPROFEN PO SCH ×2 (02:14→13:32)
[2018-09-14 13:27] VITALS: BP 134/84
[2018-09-14] MEDS: TYLENOL PO PRN (13:31)
== END 2018-09-14 16:00 | disposition home or self-care (01) | DRG 776 ==
LOC: ED 04:05 → OB 04:22 → OBSVTOIN 06:30
PROVIDERS: ADMIT Obstetrics & Gynecology; ATTEND Obstetrics & Gynecology
PROC: 3E0234Z Introduction of Serum, Toxoid and Vaccine into Muscle, Percutaneous Approach (ICD-10-PCS; principal; 2018-09-13)
DX: Z39.0 Encounter for care and examination of mother immediately after delivery (principal); Z23 Encounter for immunization
CPT/HCPCS: 51701; G0378; A6250; J1050